=== PATIENT | female | born 1995 | race American Indian/Alaskan Native ===

== ENCOUNTER 2019-02-17 15:12 | Inpatient (IN) | payer MEDICAID, OTHER ==
[2019-02-17] MEDS ORDERED: Lidocaine 1% 30 ML SDV INJECT PRN (17:19)
[2019-02-17] MEDS ORDERED: Methylergonovine 0.2 MG/1 ML Amp IM PRN (17:19)
[2019-02-17] MEDS ORDERED: Lactated Ringers 1,000 ML IV ONE (17:19)
[2019-02-17] MEDS ORDERED: Penicillin G Potassium 5 MILLUNITS in Sodium Chloride 0.9% 100 ML IV ONE (17:19)
[2019-02-17] MEDS ORDERED: Ondansetron 4 MG/2 ML SDV IV PRN (17:19)
[2019-02-17] MEDS ORDERED: Misoprostol 400 MCG (4 X 100 MCG TAB) RECTAL PRN (17:19)
[2019-02-17] MEDS ORDERED: Tranexamic Acid 1,000 MG in Sodium Chloride 0.9% 100 ML IV PRN (17:19)
[2019-02-17] MEDS ORDERED: Acetaminophen 325 MG Tab PO PRN ×2 (17:19)
[2019-02-17] MEDS ORDERED: Carboprost Tromethamine 250 MCG/1 ML Amp IM PRN (17:19)
[2019-02-17] MEDS ORDERED: Oxytocin/Normal Saline 30 UNIT/500 ML BAG IV SCH ×2 (17:30)
[2019-02-17] MEDS: Misoprostol 25 MCG (1/4 of 100 MCG) Tab VAG PRN ×2 (18:33→22:32)
[2019-02-17] MEDS: Penicillin G Potassium 3 MILLUNITS in Sodium Chloride 0.9% 100 ML IV SCH (22:30)
[2019-02-17] MEDS: Sodium Chloride 0.9% 10 ML Syringe FLUSH PRN (23:01)
[2019-02-18] MEDS: Penicillin G Potassium 3 MILLUNITS in Sodium Chloride 0.9% 100 ML IV SCH ×4 (02:24→18:09)
[2019-02-18] MEDS: Sodium Chloride 0.9% 10 ML Syringe FLUSH PRN (03:03)
[2019-02-18] MEDS: Misoprostol 25 MCG (1/4 of 100 MCG) Tab VAG PRN (03:58)
--- NOTE | 2019-02-18 12:04 | PN ---
DATE: 02/18/2019 SUBJECTIVE: The patient feels her contractions have been getting more often and a little bit stronger. She is now status post Cytotec x3. OBJECTIVE: : heart tones in the 150s range. Accelerations are seen. Tocometer reveals contractions every 2 minutes and sometimes closer together. Vaginal exam reveals her to be 2+ cm, 60% to 70% effaced, -1 to - 2 station, vertex suspected, and artificial rupture of membranes done after discussion with the patient yielding copious amounts of clear fluid. 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 PLAN: We will continue to follow clinically and closely. The patient understands and agrees with the above treatment plan. [facility] /[id number]
[2019-02-18] MEDS: Lactated Ringers 1,000 ML IV SCH ×2 (12:33→14:03)
[2019-02-18] MEDS ORDERED: fentaNYL 100 MCG/2 ML SDV IVPUSH PRN (12:55)
--- NOTE | 2019-02-18 14:07 | OBOUT ---
DATE: 02/17/2019 TIME: 1620 to 1640. REASON FOR NST: 1. Intrauterine at 36-6/7 weeks by 32-5/7 weeks versus 37-4/7 weeks by patient and caregiver's history with early ultrasound done in [place], but no documentation that could be found or called for. 2. Gestational hypertension with increasing LFTs, possible early HELLP variant. 3. Group B Streptococcus positive. 4. Limited care. 5. History of severe preeclampsia with previous delivery. 6. Meth use/abuse. Last use was approximately 7-10 days ago. 7. Positive THC and methamphetamine, on urine drug screen, 01/19/2019. 8. Hep C antibody and quant elevated, meaning the patient has hep C. 9. G4, P1-0-2-1. NST INTERPRETATION: During this time period, tone baseline is approximately 140 and there are at least two 15 x 15 beats per minute accelerations making this strip reactive. It is also noted to be reassuring. Tocometer reveals some irritability, possibility of 1 contraction. Blood pressure 139/89, recheck 137/94, heart rate between 101 and 107. ASSESSMENT: 1. Nonstress test, reactive and reassuring. 2. Tocometer with 1 contraction. PLAN: The patient was sent over from the clinic with increasing blood pressures. Initial blood pressure was 141/92, recheck 142/80. Serial blood pressures have revealed elevations suspicious for gestational hypertension. She had a preeclampsia workup done with a PIH panel. Urine protein creatinine ratio of 0.21 with an AST of 63 elevated, ALT 89 elevated, and LDH elevated at 198 with 30 protein in the urinalysis. White cell count 7.7, hemoglobin 12.6, platelets 197. Urine drug screen that was negative. Because of her history of severe preeclampsia with previous delivery as well as now gestational hypertension suspected based on continued elevated blood pressures and proteinuria with a possible early HELLP variant with increased LFTs, shared decision was made to proceed with induction of labor this late evening as she most likely will deliver when she is 37+ weeks. At the current time of dictation, we are awaiting a biophysical profile with DEENA and for presentation as unsure presentation on evaluation earlier in the clinic today. If vertex is noted and status is reassuring, we will proceed with Cytotec type induction. I did discuss with her and her female caregiver risks, benefits, alternatives, and complications of use of Cytotec. Verbal consent was obtained and questions were answered and written consent will be obtained prior to administration. We will start with 25 mcg vaginally every 4 hours. Due to her GBS positive status, we will start penicillin now while awaiting ultrasound to be done. Due to her history of drug use, [employer] will be consulted. In terms of the hep C positive status, infant will be needing to be reevaluated at 15 to 18 months of age or sooner if symptomatic and this was discussed with the patient as well. For history and physical, records were called for, reviewed, and supplemented by patient history and done and updated through [facility] with updated sticker applied to the EPIC chart that will be scanned into the chart. [facility] /[id number]
[2019-02-18] MEDS ORDERED: Benzocaine/Menthol 20%-0.5% Spray 56 GM Canister TOP PRN (14:33)
[2019-02-18] MEDS ORDERED: Simethicone 80 MG Tab.Chew PO PRN (14:33)
[2019-02-18] MEDS ORDERED: Sodium Chloride 0.9% 10 ML Syringe FLUSH PRN (14:33)
[2019-02-18] MEDS ORDERED: Oxytocin 10 Units/1 ML SDV IM PRN (14:33)
[2019-02-18] MEDS: Ibuprofen 800 MG Tab PO PRN (19:01)
[2019-02-18] MEDS: Docusate Sodium 100 MG Cap PO PRN (19:02)
[2019-02-18] MEDS ORDERED: Zolpidem 5 MG Tab PO PRN (21:00)
[2019-02-19] MEDS: Ibuprofen 800 MG Tab PO PRN (08:39)
[2019-02-19] MEDS: Docusate Sodium 100 MG Cap PO PRN ×2 (08:41→22:30)
[2019-02-19] MEDS: Prenatal Multivitamin with Calcium/Folic Acid/Iron Tab PO SCH (08:41)
[2019-02-20] MEDS: Prenatal Multivitamin with Calcium/Folic Acid/Iron Tab PO SCH (08:54)
[2019-02-20] MEDS: Ibuprofen 800 MG Tab PO PRN (08:54)
[2019-02-20 09:36] VITALS: BP 121/73; PULSE 98
--- NOTE | 2019-02-21 11:11 | DEL ---
DATE: 02/18/2019 PREOPERATIVE DIAGNOSES: 1. Intrauterine at 37 weeks by 32 and 5/7 weeks versus 37 and 5/7 weeks by the patient's history of earlier ultrasound. Unable to obtain records. 2. Gestational hypertension with increased LFTs, possible early HELLP variant. 3. GBS positive status - antibiotics given appropriately. 4. Later care. 5. History of severe preeclampsia with last delivery. 6. Meth use and abuse and THC use during this with last use approximately 7 to 10 days ago with urine drug screen negative upon admission. 7. Positive THC on urine drug screen on 01/19/2019. 8. Hepatitis C positive status. 9. G4, P1-0-2-1. 10.Recurrent variable decelerations, requiring amnioinfusion with IUPC. PREOPERATIVE DIAGNOSES: 1. Intrauterine at 37 weeks by 32 and 5/7 weeks versus 37 and 5/7 weeks by the patient's history of earlier ultrasound. Unable to obtain records. 2. Gestational hypertension with increased LFTs, possible early HELLP variant. 3. GBS positive status - antibiotics given appropriately. 4. Later care. 5. History of severe preeclampsia with last delivery. 6. Meth use and abuse and THC use during this with last use approximately 7 to 10 days ago with urine drug screen negative upon admission. 7. Positive THC on urine drug screen on 01/19/2019. 8. Hepatitis C positive status. 9. G4, P1-0-2-1. 10. Short umbilical cord. 11.Trailing membranes, removed with ring forceps. 12.First-degree perineal laceration - repaired. PROCEDURES PERFORMED: NST and Cytotec on 02/17/2019, followed by on 02/18/2019, Cytotec, artificial rupture of membranes, Pitocin augmentation, IUPC placement, amnioinfusion, and then subsequent spontaneous vaginal delivery. First-degree perineal laceration - repaired. ANESTHESIA/ANALGESIA: The patient did receive fentanyl in the first stage of labor and then nitrous oxide nearing the second stage of labor and during the second stage of labor. ESTIMATED BLOOD LOSS: 300 mL. FINDINGS: Male, score and weight pending. Short umbilical cord. SUMMARY OF EVENTS: The patient is a 23-year-old G4, P1-0-2-1, admitted on 02/17/2019 when she was 36 and 6/7 weeks due to gestational hypertension, increased LFTs with possible HELLP variant with history of severe preeclampsia with previous delivery. She subsequently underwent Cytotec. Please see progress notes in regard to this. She received 3 total doses, then in the morning of 02/18/2019 underwent artificial rupture of membranes, subsequent Pitocin augmentation, and then was nearing the second stage of labor with recurrent variable decelerations requiring IUPC with amnioinfusion which was started. Prior to bolus being completed, she was found to be near the second stage of labor with urge to push. I donned sterile gown and gloves. The patient was subsequently found to be complete, she started pushing and vertex was delivered in an VIVIAN presentation followed by the rest of the infant without difficulty with mouth and nares suctioned, cord was double doubly clamped and cut, and short umbilical cord was noted. was resuscitated on mother's abdomen. Approximately 10 mL of cord blood was then obtained for labs. Placenta was then delivered with gentle cord traction and fundal massage within 5 minutes. There was noted to be some trailing membranes that were separate from the placenta which were teased out with ring forceps. Pitocin was started per protocol. Bleeding decreased. Perineum, vagina, and perirectal were then examined, revealed a small first-degree perineal laceration that was bleeding and subsequently anesthetized with 1% lidocaine without epinephrine and repaired with 3-0 Vicryl and hemostasis was reassured. Mother and infant are currently stable at the time of dictation. [facility] /[id number]
--- NOTE | 2019-02-21 12:32 | PN ---
DATE: 02/18/2019 SUBJECTIVE: The patient's contractions are getting stronger. She did receive some fentanyl earlier. Her Pitocin is currently at 4 milliunits per minute. I was called to the room because of her recurrent variable deceleration. OBJECTIVE: heart tones in the 120s to 130s range for baseline with accelerations and then subsequent variable decelerations that are noted with the contractions in an early-type presentation as low as in the 50s to 60s by nurse reports, now down into the 90s to 100s range. Tocometer reveals contractions every couple of minutes. Vaginal exam reveals her to be 7 cm, 100% effaced, 0 station, vertex suspected, and IUPC placed after discussion with the patient. Last blood pressure was 148/101 with her breathing through contractions, heart rate 86. ASSESSMENT: Intrauterine now at 37 weeks by 32 and 5/7 weeks complicated by gestational hypertension with possible HELLP variant with increased LFTs with history of severe preeclampsia with her last delivery in a group B Streptococcus positive, G4, P1-0-2-1 with late care, positive hepatitis C status, and history of methamphetamine abuse and THC use during the with last methamphetamine use being over 7 to 10 days ago, urine drug screen being negative upon admission. PLAN: As nearing second stage of labor, did discuss pain control with trial of nitrous oxide, and IUPC was placed, and we will proceed with amnio infusion per protocol. We will be using normal saline at 250 mL over the next 20 to 30 minutes and follow and maternal status very closely. [facility] /[id number]
--- NOTE | 2019-02-21 12:35 | PN ---
DATE: 02/19/2019 day #1, status post spontaneous vaginal delivery with first-degree perineal laceration - repaired. SUBJECTIVE: The patient is tolerating p.o., ambulating, urinating, and passing flatus. Pain is under control. She states her bleeding has mildly increased but not significantly heavy. OBJECTIVE: Vital Signs: Temperature 98.3; heart rate 94; blood pressure last night was 127/80, this morning was 153/84; respiratory rate is 14. General: The patient denies any headaches, visual changes, or upper abdominal pain. Lungs: Clear to auscultation bilaterally. Heart: S1 and S2. Regular rate and rhythm. Genitourinary: Firm uterus around the umbilicus. Extremities: Trace pedal edema. No calf pain. LABORATORY DATA: White cell count 11.8, hemoglobin 10.8, compared to predelivery hemoglobin 12.6, platelets 199. ASSESSMENT AND PLAN: day #1, status post spontaneous vaginal delivery, complicated by gestational hypertension, and noted to have increased LFTs. At this current time, blood pressures have been in the non-severe range. She denies any signs or symptoms of severe preeclampsia. We will continue to follow clinically and closely at this point in time. The patient understands and agrees with the above treatment plan. [facility] /[id number]
--- NOTE | 2019-02-21 14:08 | DISCH ---
ADMIT DIAGNOSES: 1. Intrauterine 36-6/7 weeks by 32-5/7-week versus 37-4/7 weeks by patient history of ultrasound in [place] with records unable to be obtained. 2. Gestational hypertension with increased LFTs, possible HELLP variant. 3. Group B Streptococcus positive. 4. Later care. 5. History of preeclampsia with previous delivery. 6. Methamphetamine use and abuse as well as THC with last use of methamphetamine being approximately 7 to 10 days ago with urine drug screen being negative upon admission. 7. Positive THC on urine drug screen a methamphetamine on 01/19/2019. 8. Hepatitis C positive status with antibody positive and quant RNA elevated. 9. G4, P1-0-2-4. DISCHARGE DIAGNOSES: 1. Intrauterine at 37 weeks by 32-5/7-week versus 37-4/7 weeks by the patient history of ultrasound in [place] with records unable to be obtained-delivered. 2. Gestational hypertension with increased LFTs, possible HELLP variant, resolving. 3. Group B Streptococcus positive. 4. Later care. 5. History of preeclampsia with previous delivery. 6. Methamphetamine use and abuse as well as THC with last use of methamphetamine being approximately 7 to 10 days ago with urine drug screen being negative upon admission. 7. Positive THC on urine drug screen a methamphetamine on 01/19/2019. 8. Hepatitis C positive status with antibody positive and quant RNA elevated. 9. G4, P1-0-2-4. 10.Recurrent variable decelerations. 11.Short umbilical cord. 12.First-degree perineal laceration, repaired. 13.Trailing membranes requiring ring forceps to remove placental membranes that from the placenta. PROCEDURES PERFORMED: NST and Cytotec on 02/17/2019 and on 02/18/2019, had more Cytotec followed by artificial rupture membranes, IUPC with amnioinfusion and Pitocin augmentation, followed by spontaneous vaginal delivery with first-degree perineal laceration repaired per Dr. Estevez. HISTORY OF PRESENT ILLNESS: Please see H and P. SUMMARY OF HOSPITAL COURSE: The patient was admitted on the above date with above diagnoses. Due to her GBS positive status as well as gestational hypertension, increased LFTs, possible HELLP variant, and history of severe preeclampsia with previous delivery, she underwent an NST followed by Cytotec on the evening of 02/17 through 02/18. She underwent artificial rupture of membranes, Pitocin augmentation, IUPC with amnioinfusion then went on to have spontaneous vaginal delivery with first-degree perineal laceration with a short umbilical cord and trailing membranes requiring ring forceps for removal. Please see delivery note for further details. This yielded a male with score of 8 and 9, weighing 6 pounds 9 ounces (2980 g). The patient did receive GBS prophylaxis per protocol. day #1, please see progress note. day #2, date of discharge, the patient was tolerating p.o., ambulating, urinating, passing flatus, and requesting discharge. PHYSICAL EXAMINATION: Vital Signs: Last set of vitals updated and listed in the chart. Temperature 98.2, heart rate 98, blood pressure 133/85 last night, recheck this morning was 120/73 with respiratory rate of 16. Lungs: Clear to auscultation bilaterally. Heart: S1 and S2. Regular rate and rhythm. Genitourinary: Firm uterus at approximately the umbilicus. Extremities: Trace peripheral edema. No calf pain. The patient denied any headaches, visual changes, or upper abdominal pain on discharge. CONDITION ON DISCHARGE COMPARED TO CONDITION ON ADMISSION: Improved. INSTRUCTION: 1. Diet: As tolerated. 2. Activity: No lifting more than 20 pounds. No sit-ups, straining, and pelvic rest for the next 6 weeks with immediate return to fertility discussed with the patient. 3. Reasons to return or go to the emergency room were discussed with the patient in detail including, but not limited to, temperature greater than 100.4, foul-smelling discharge, red hot tender breasts, increased vaginal bleeding, or if she has a severe headaches, visual changes, or upper abdominal pain. FOLLOWUP: Follow up in 6 weeks . I did discuss the importance of followup and ramifications of not doing so in regard to her infant as well as reasons to return or go to the emergency room in regard to her baby and recommend followup tomorrow. She will have to call in the morning to get an appointment with me to follow up for jaundice and weight loss. [facility] /[id number]
== END 2019-02-20 12:30 | disposition home or self-care (01) | DRG 807 ==
LOC: DL.OBCHECK 15:12 → UNDOADMOB 17:19 → DL.OB 17:19 → UNDOADMOB 17:21 → DL.OB 17:21 → INTOOBSV 02-18 14:14 → OBSVTOIN 02-18 14:14
PROVIDERS: ADMIT Family Medicine; ATTEND Family Medicine
PROC: 10E0XZZ Delivery of Products of Conception, External Approach (ICD-10-PCS; principal; 2019-02-18)
PROC: 10907ZC Drainage of Amniotic Fluid, Therapeutic from Products of Conception, Via Natural or Artificial Opening (ICD-10-PCS; 2019-02-18)
PROC: 10H07YZ Insertion of Other Device into Products of Conception, Via Natural or Artificial Opening (ICD-10-PCS; 2019-02-18)
PROC: 0HQ9XZZ Repair Perineum Skin, External Approach (ICD-10-PCS; 2019-02-18)
DX: O13.4 Gestational [pregnancy-induced] hypertension without significant proteinuria, complicating childbirth (principal); Z37.0 Single live birth; O99.824 Streptococcus B carrier state complicating childbirth; O76 Abnormality in fetal heart rate and rhythm complicating labor and delivery; O70.0 First degree perineal laceration during delivery; O14.24 HELLP syndrome, complicating childbirth; Z3A.37 37 weeks gestation of pregnancy
CPT/HCPCS: 36415; 59025; 59409; 76819; 80305-QW; 81003; 82565; 82570; 83615; 84156; 84450; 84460; 84520; 84550; 85027; A9270-GY; J2001; J2540; J2590; J3010; J7050; J7120

== ENCOUNTER 2021-03-12 10:20 | Emergency (ER) | payer MEDICAID, OTHER ==
[2021-03-12] MEDS ORDERED: Sodium Chloride 0.9% 10 ML Syringe FLUSH PRN (10:34)
[2021-03-12] MEDS ORDERED: Sodium Chloride 0.9% 1,000 ML IV ONE (10:35)
[2021-03-12] MEDS ORDERED: cloNIDine 0.1 MG Tab PO ONE (10:36)
[2021-03-12] MEDS ORDERED: Dicyclomine 10 MG Cap PO ONE (10:37)
[2021-03-12 10:57] VITALS: BP 111/81; PULSE 91
[2021-03-12 11:29] LABS: ANION GAP 12.3 mEq/L (7-13); CHLORIDE,CL 104 mmol/L (98-107); SODIUM,NA 139 mmol/L (136-145)
[2021-03-12 11:32] LABS: ACETAMINOPHEN 0 ug/mL (10-30 (Therapeutic))
[2021-03-12 11:40] LABS: CORONAVIRUS COVID-19 NAA NEGATIVE (NEGATIVE); RESPIRATORY SYNCYTIAL VIR NAA NEGATIVE (NEGATIVE)
[2021-03-12 12:13] LABS: AMPHETAMINES,URINE POSITIVE (NEGATIVE); BARBITURATES,URINE NEGATIVE (NEGATIVE); BENZODIAZEPINE,URINE NEGATIVE (NEGATIVE); MDMA (ECSTASY), URINE NEGATIVE (NEGATIVE); METHADONE,URINE NEGATIVE (NEGATIVE); METHAMPHETAMINES,URINE POSITIVE (NEGATIVE); OPIATES,URINE NEGATIVE (NEGATIVE); OXYCODONE,URINE NEGATIVE (NEGATIVE); PHENCYCLIDINE,URINE NEGATIVE (NEGATIVE); TCA,URINE NEGATIVE (NEGATIVE)
== END 2021-03-12 16:29 | disposition home or self-care (01) ==
LOC: DL.ED 10:20
DX: J10.1 Influenza due to other identified influenza virus with other respiratory manifestations (principal); F11.23 Opioid dependence with withdrawal; F15.10 Other stimulant abuse, uncomplicated; Z20.822 Contact with and (suspected) exposure to COVID-19
CPT/HCPCS: 0241U; 36415; 80053; 80143; 80179; 80305; 80307; 81001; 81025; 83735; 84443; 85025; 87086; 99284; A9270; J7030

== ENCOUNTER 2022-07-24 23:52 | Emergency (ER) | payer SELFPAY | END 2022-07-25 04:46 | disposition home or self-care (01) | LOC: DL.ED 23:52 → MERGE 23:52 → DL.ED 07-25 04:46 | DX: F10.129 Alcohol abuse with intoxication, unspecified (principal); Y90.8 Blood alcohol level of 240 mg/100 ml or more; S61.210A Laceration without foreign body of right index finger without damage to nail, initial encounter; W26.8XXA Contact with other sharp object(s), not elsewhere classified, initial encounter | CPT/HCPCS: 12001; 36415; 80307; 99285 ==